=== PATIENT | male | born 1995 | race Two or more races ===

== ENCOUNTER 2019-12-10 14:08 | Outpatient (REF) | payer OTHER, SELFPAY | END 2019-12-10 14:09 | disposition home or self-care (01) | LOC: HO.LAB 14:08 | PROVIDERS: Visit Provider Internal Medicine | DX: Z20.828 Contact with and (suspected) exposure to other viral communicable diseases (principal) | CPT/HCPCS: 87635 ==

== ENCOUNTER 2020-03-20 09:53 | Outpatient (REF) | payer OTHER, SELFPAY | END 2020-03-20 09:54 | disposition home or self-care (01) | LOC: HO.EMPCOV 09:53 | PROVIDERS: Visit Provider Internal Medicine | DX: Z20.822 Contact with and (suspected) exposure to COVID-19 (principal) | CPT/HCPCS: 36415; C9803; U0003 ==

== ENCOUNTER 2020-05-17 09:50 | Outpatient (REF) | payer OTHER, SELFPAY | END 2020-05-17 09:51 | disposition home or self-care (01) | LOC: HO.LAB 09:50 | PROVIDERS: Visit Provider Internal Medicine | DX: Z20.822 Contact with and (suspected) exposure to COVID-19 (principal) | CPT/HCPCS: 36415; C9803; U0003; U0005 ==